=== PATIENT | female | born 1960 | race African-American/Black ===

== ENCOUNTER 2017-03-13 08:27 | Emergency (ER) | payer BC ==
[~2017-03-13] VITALS: Ht 157.5 cm; Wt 59.0 kg
[~2017-03-13 08:27] MED LIST: ACET500T68 PO; CYCL10TA2 PO; DOCU-27 PO; IBUP-1027 PO; MELO-150 PO; OXYC1TAB7 PO; PANT40TA3 PO
[2017-03-13 08:37] VITALS: BP 134/85
[2017-03-13] MEDS ORDERED: ONDANSETRON ODT 4 MG TAB.RAPDIS. PO ONE (08:45)
[2017-03-13] MEDS ORDERED: OXYCODONE/APAP 5/325 TABLET. PO ONE (08:45)
--- NOTE | 2017-03-13 08:47 | PHYS DOC ---
Past Medical History Past Medical History: Hyperthyroid, Other Additional Past Medical Histor: sciatica Past Surgical History: Other Additional Past Surgical Histo: d & c, R breast biopsy, right knee fracture repair with hardware Alcohol Use: None Drug Use: None Adult General Chief Complaint Chief Complaint: BACK PAIN - NO INJURY HPI HPI Patient is a 56 year old female who presents emergency room today with complaint of atraumatic low back pain that radiates down her right leg for approximately one week. Patient denies any inciting injury such as slips, falls , rotation or lifting objects. 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 This surgery was performed by Dr. Caruso, neurosurgeon at this facility. Other than radiation down right leg, patient denies saddle anesthesia or incontinence of urine or bowel. She denies urinary tract symptoms such as dysuria, hematuria or flank pain. Review of Systems Review of Systems Constitutional: Denies fever or chills [] Eyes: Denies change in visual acuity, redness, or eye pain [] HENT: Denies nasal congestion or sore throat [] Respiratory: Denies cough or shortness of breath [] Cardiovascular: No additional information not addressed in HPI [] GI: Denies abdominal pain, nausea, vomiting, bloody stools or diarrhea [] : Denies dysuria or hematuria [] Musculoskeletal: Denies back pain or joint pain [] Integument: Denies rash or skin lesions [] Neurologic: Denies headache, focal weakness or sensory changes [] Endocrine: Denies polyuria or polydipsia [] Current Medications Current Medications Current Medications Medications (Trade) Dose Ordered Sig/Yoav Start Time Stop Time Status Last Admin Dose Admin Ondansetron HCl (Zofran Odt) 4 mg 1X ONCE 03/13/17 08:45 03/13/17 08:46 DC 03/13/17 08:50 4 MG Oxycodone/ Acetaminophen (Percocet 5/325) 2 tab 1X ONCE 03/13/17 08:45 03/13/17 08:46 DC 03/13/17 08:50 2 TAB Allergies Allergies Allergies Coded Allergies Type Severity Reaction Last Updated Verified hydrocodone Allergy Mild NAUSEA 09/15/16 Yes Physical Exam Physical Exam Constitutional: Well developed, well nourished, no acute distress, non-toxic appearance. [] HENT: Normocephalic, atraumatic, bilateral external ears normal, oropharynx moist, no oral exudates, nose normal. [] Eyes: PERRLA, EOMI, conjunctiva normal, no discharge. [] Neck: Normal range of motion, no tenderness, supple, no stridor. [] Cardiovascular:Heart rate regular rhythm, no murmur [] Lungs & Thorax: Bilateral breath sounds clear to auscultation [] Abdomen: Bowel sounds normal, soft, no tenderness, no masses, no pulsatile masses. [] Skin: Warm, dry, no erythema, no rash. [] Back: Back is normal in appearance with exception of a well-healed, vertical surgical scar along the lumbar spine. There is no erythema or warmth to patient' s skin. There are no overlying skin lesions suggestive of shingles. There is tenderness to palpation the right paraspinous soft tissues at the level of L2- 5. There is no palpable defect, deformity or spasm. There is mild tenderness in the midline region as well without palpable abnormality. Extremities: No tenderness, no cyanosis, no clubbing, ROM intact, no edema. There are no dystrophic changes to either lower extremity. Strength is equal and symmetric bilaterally. Neurologic: Alert and oriented X 3, normal motor function, normal sensory function, no focal deficits noted. [] Psychologic: Affect normal, judgement normal, mood normal. [] Current Patient Data Vital Signs Vital Signs Date Time Temp Pulse Resp B/P Pulse Ox O2 Delivery O2 Flow Rate FiO2 03/13/17 08:37 97.7 85 18 100 Room Air 97.7 EKG EKG [] Radiology/Procedures Radiology/Procedures [facility] [address] [place] [address] IMAGING REPORT Signed PATIENT: SOILA PITTS ACCOUNT: [id number] : 1960 LOCATION: ER AGE: 56 SEX: F EXAM STATUS: REG ER ORD. PHYSICIAN: SHELL CORONADO REASON: low back pain for 1 week-hx of melanotic schwannoma PROCEDURE: CT LUMBAR SPINE WO CONTRAST Indication low back pain for one week. Axial images were obtained and reformatted in the coronal and sagittal planes. Disc cuts were also obtained. Note is made of the previous examination 07/30/2015 demonstrating a mass in the right neural foramen at L3-4. Note is made that the patient has had surgery and this soft tissue mass has been removed. A significant soft tissue finding is not seen. Occasional calcifications are noted associated with the visualized liver. Vertebral height is well maintained. There are some facet degenerative changes. Alignment and disc spaces appear normal. An acute finding is not seen. The thoracolumbar junction appears unremarkable. L1-2 shows no significant foraminal encroachment or canal narrowing. L2-3 is also unremarkable. There is slight soft tissue irregularity on the right at L3-4 which is likely postsurgical. Right laminectomy defect additionally noted. Recurrent soft tissue mass or canal narrowing is not seen. There is very slight disc space bulging at L3-4. L4-5 shows no significant canal or neural foraminal encroachment. L5-S1 is unremarkable showing no significant canal narrowing or neural foraminal encroachment. If further evaluation of the lumbar spine as clinically warranted an MRI examination may be useful. IMPRESSION: No acute or significant finding seen CT of the lumbar spine PQRS Compliance Statement: One or more of the following individualized dose reduction techniques were utilized for this examination: 1. Automated exposure control 2. Adjustment of the mA and/or kV according to patient size 3. Use of iterative reconstruction technique DICTATED and SIGNED BY: LEVON CARR MD DATE: 03/13/17 0935 CC: MEETA JHAVERI APRN; SHELL CORONADO ~ Course & Med Decision Making Course & Med Decision Making Patient received Percocet by mouth for her pain. She reports that her pain is improving after taking the medication. We discussed her CT scan findings which are reassuring at this point. We also discussed follow-up with Dr. Caruso for reevaluation. Dragon Disclaimer Dragon Disclaimer This electronic medical record was generated, in whole or in part, using a voice recognition dictation system. Departure Departure Impression: Primary Impression: Lumbosacral radiculopathy Disposition: HOME, SELF-CARE Condition: IMPROVED Referrals: MEETA JHAVERI APRN (PCP) SHARON CARUSO MD Patient Instructions: Lumbosacral Radiculopathy Additional Instructions: 1. The CT scan of your back today shows no recurrence of the soft tissue mass or other abnormalities with the exception of the typical findings after the surgery had. 2. Take the medication as prescribed. 3. Review the discharge instructions provided for self-care and reasons to return to the emergency department. 4. Call Dr. Caruso's office this afternoon or tomorrow to schedule follow-up appointment. Scripts Prednisone 50 Mg Tablet1 Tab PO DAILY #5 TAB Prov:SHELL CORONADO 03/13/17 Oxycodone/Apap 5-325 (Percocet 5-325 Mg Tablet)1 Each Tablet1-2 Tab PO every 6 hours PAIN #20 TAB Prov:SHELL CORONADO 03/13/17 SHELL CORONADO March 13, 2017 08:47
--- NOTE | 2017-03-13 09:48 | RAD ---
Indication low back pain for one week. Axial images were obtained and reformatted in the coronal and sagittal planes. Disc cuts were also obtained. Note is made of the previous examination 07/30/2015 demonstrating a mass in the right neural foramen at L3-4. Note is made that the patient has had surgery and this soft tissue mass has been removed. A significant soft tissue finding is not seen. Occasional calcifications are noted associated with the visualized liver. Vertebral height is well maintained. There are some facet degenerative changes. Alignment and disc spaces appear normal. An acute finding is not seen. The thoracolumbar junction appears unremarkable. L1-2 shows no significant foraminal encroachment or canal narrowing. L2-3 is also unremarkable. There is slight soft tissue irregularity on the right at L3-4 which is likely postsurgical. Right laminectomy defect additionally noted. Recurrent soft tissue mass or canal narrowing is not seen. There is very slight disc space bulging at L3-4. L4-5 shows no significant canal or neural foraminal encroachment. L5-S1 is unremarkable showing no significant canal narrowing or neural foraminal encroachment. If further evaluation of the lumbar spine as clinically warranted an MRI examination may be useful. IMPRESSION: No acute or significant finding seen CT of the lumbar spine PQRS Compliance Statement: One or more of the following individualized dose reduction techniques were utilized for this examination: 1. Automated exposure control 2. Adjustment of the mA and/or kV according to patient size 3. Use of iterative reconstruction technique
[2017-03-13] MEDS ORDERED: OXYC-323 PO (10:08)
[2017-03-13] MEDS ORDERED: PRED50TA PO (10:08)
== END 2017-03-13 10:27 | disposition home or self-care (01) ==
LOC: ER 08:27
DX: M54.17 Radiculopathy, lumbosacral region (principal); E05.90 Thyrotoxicosis, unspecified without thyrotoxic crisis or storm; Z88.5 Allergy status to narcotic agent
CPT/HCPCS: 72131; 99284; Q0162

== ENCOUNTER 2017-04-22 13:37 | Emergency (ER) | payer BC ==
[~2017-04-22] VITALS: Ht 157.5 cm; Wt 59.0 kg
[~2017-04-22 13:37] MED LIST changes: +DOCU-109 PO; -DOCU-27 PO; -MELO-150 PO; +MELO15TA23 PO; +OXYC-323 PO; +PRED50TA PO
[2017-04-22] MEDS ORDERED: SULF1TAB24 PO (14:34)
--- NOTE | 2017-04-22 14:35 | PHYS DOC ---
Past Medical History Past Medical History: Hyperthyroid, Other Additional Past Medical Histor: sciatica Past Surgical History: Other Additional Past Surgical Histo: d & c, R breast biopsy, right knee fracture repair with hardware Alcohol Use: None Drug Use: None Adult General Chief Complaint Chief Complaint: BACK PAIN OR INJURY [facility] HPI Patient is a 56 year old female presents to the emergency department stating 4: 00 this when she developed back pain and discomfort. She states that she's had surgery and whether surgical site is's with the pain has occurred. Patient does have a reddened area to the right of the scar that appears to be swollen tender as if something had bitten her. Patient states her last tetanus immunization was 3 years ago. Denies Chills or any nausea vomiting. Review of Systems Review of Systems Constitutional: Denies fever or chills [] Eyes: Denies change in visual acuity, redness, or eye pain [] HENT: Denies nasal congestion or sore throat [] Respiratory: Denies cough or shortness of breath [] Cardiovascular: No additional information not addressed in HPI [] GI: Denies abdominal pain, nausea, vomiting, bloody stools or diarrhea [] : Denies dysuria or hematuria [] Musculoskeletal: Denies back pain or joint pain [] Integument: Denies rash or skin lesions. Red tender area noted to the right of patients back scar Neurologic: Denies headache, focal weakness or sensory changes [] Endocrine: Denies polyuria or polydipsia [] Allergies Allergies Allergies Coded Allergies Type Severity Reaction Last Updated Verified hydrocodone Allergy Mild NAUSEA 09/15/16 Yes Physical Exam Physical Exam Constitutional: Well developed, well nourished, no acute distress, non-toxic appearance. [] HENT: Normocephalic, atraumatic, bilateral external ears normal, oropharynx moist, no oral exudates, nose normal. [] Eyes: PERRLA, EOMI, conjunctiva normal, no discharge. [] Neck: Normal range of motion, no tenderness, supple, no stridor. [] Cardiovascular:Heart rate regular rhythm, no murmur [] Lungs & Thorax: Bilateral breath sounds clear to auscultation [] Skin: Warm, dry, no erythema, no rash. Patient has red area noted to the right of incisional scar. Area is tender, red and swollen with no drainage or discharge noted. Back: No tenderness Extremities: No tenderness, no cyanosis, no clubbing, ROM intact, no edema. Patient was noted to ambulate with a good steady gait. Neurologic: Alert and oriented X 3, normal motor function, normal sensory function, no focal deficits noted. [] Psychologic: Affect normal, judgement normal, mood normal. [] Current Patient Data Vital Signs Vital Signs Date Time Temp Pulse Resp B/P (MAP) Pulse Ox O2 Delivery O2 Flow Rate FiO2 04/22/17 14:03 98.2 60 14 99 Room Air 98.2 EKG EKG [] Radiology/Procedures Radiology/Procedures [] Course & Med Decision Making Course & Med Decision Making Pertinent Labs and Imaging studies reviewed. (See chart for details) Patient was recommended to use Tylenol or ibuprofen for pain and discomfort. Warm moist packs to the back area. Patient will be placed on Bactrim. Recommended patient to follow up primary care physician in the next 5-7 days. Since symptoms to return back to emergency department as been provided. Patient agrees with discharge instructions treatment regimens and follow-up recommendations. [] Dragon Disclaimer Dragdana Disclaimer This electronic medical record was generated, in whole or in part, using a voice recognition dictation system. Departure Departure Impression: Primary Impression: Cellulitis of back Disposition: HOME, SELF-CARE Condition: STABLE Referrals: MEETA JHAVERI APRN (PCP) Patient Instructions: Cellulitis, [id number] Additional Instructions: Activity as tolerated Medication as prescribed Tylenol or Ibuprofen for fever, chills, or pain Warm moist packs to the area five times a day for 20 minutes at a time Followup with primary care provider in 3-5 days Return to emergency department as needed for signs and symptoms that become worse. Scripts Sulfamethoxazole/Trimethoprim (BACTRIM DS TABLET) 1 Each Tablet 1 TAB PO BID, #20 TAB Prov: KO DALY APRN 04/22/17 KO DALY APRN Apr 22, 2017 14:35
[2017-04-22] MEDS ORDERED: IBUPROFEN 600 MG TABLET. PO ONE (14:45)
== END 2017-04-22 14:40 | disposition home or self-care (01) ==
LOC: ER 13:37
DX: L03.312 Cellulitis of back [any part except buttock and flank] (principal); E05.90 Thyrotoxicosis, unspecified without thyrotoxic crisis or storm; Z88.6 Allergy status to analgesic agent; Z98.890 Other specified postprocedural states
CPT/HCPCS: 99283

== ENCOUNTER 2018-02-05 13:45 | Emergency (ER) | payer BC ==
[2018-02-05] MEDS: HYDROcodone/APAP 5/325MG 1 TAB TABLET PO (14:30)
[2018-02-05] MEDS: IBUPROFEN 800 MG TABLET. PO (14:30)
== END 2018-02-05 14:50 | disposition home or self-care (01) ==
LOC: ER 13:45
DX: M54.42 Lumbago with sciatica, left side (principal); E05.90 Thyrotoxicosis, unspecified without thyrotoxic crisis or storm; Z88.5 Allergy status to narcotic agent
CPT/HCPCS: 99283

== ENCOUNTER 2018-03-06 15:30 | Inpatient (IN) | payer BC ==
[2018-03-06 17:13] LABS: ADD MAN DIFF? NO
[2018-03-06 17:15] LABS: BASO # 0.1 x10^3/uL (0.0-0.2); BASO % 1 % (0-3); EOS # 0.1 x10^3/uL (0.0-0.7); EOS % 1 % (0-3); HEMOGLOBIN 15.2 g/dL (12.0-15.5); LYMPH # 3.3 x10^3/uL (1.0-4.8); LYMPH % 33 % (24-48); MEAN CORPUSCULAR HEMOGLOBIN 29 pg (25-35); MEAN CORPUSCULAR HGB CONC 34 g/dL (31-37); MEAN CORPUSCULAR VOLUME 86 fL (79-100); MONO # 0.7 x10^3/uL (0.0-1.1); MONO % 7 % (0-9); NEUT # 5.8 x10^3uL (1.8-7.7); NEUT % 58 % (31-73); PLATELET COUNT 295 x10^3/uL (140-400); RED BLOOD COUNT 5.22 x10^6/uL (3.50-5.40); RED CELL DISTRIBUTION WIDTH 13.4 % (11.5-14.5)
[2018-03-06] MEDS: ONDANSETRON PF 4 MG/2 ML VIAL. IV (17:17)
[2018-03-06] MEDS: FAMOTIDINE 20 MG/2 ML VIAL IVP (17:17)
[2018-03-06] MEDS: fentaNYL PF VIAL 100 MCG/2 ML VIAL IV ×3 (17:17→21:29)
[2018-03-06] MEDS: IV NORMAL SALINE 1000ML BAG 1,000 ML IV ×2 (17:18→21:30)
[2018-03-06 17:27] LABS: ANION GAP 12 (6-14); BLOOD UREA NITROGEN 11 mg/dL (7-20); BUN/CREATININE RATIO 11 (6-20); CALCIUM 9.9 mg/dL (8.5-10.1); CARBON DIOXIDE 27 mmol/L (21-32); CHLORIDE 101 mmol/L (98-107); GFR 69.1; GLUCOSE 102 mg/dL (70-99); POTASSIUM 3.7 mmol/L (3.5-5.1); SODIUM 140 mmol/L (136-145)
[2018-03-06 17:33] LABS: ALBUMIN 3.7 g/dL (3.4-5.0); ALBUMIN/GLOBULIN RATIO 0.8 (1.0-1.7); ALK PHOS 94 U/L (46-116); ALT (SGPT) 18 U/L (14-59); AST (SGOT) 18 U/L (15-37); LIPASE 72 U/L (73-393); TOTAL BILIRUBIN 0.5 mg/dL (0.2-1.0); TOTAL PROTEIN 8.3 g/dL (6.4-8.2)
[2018-03-06 17:40] LABS: TROPONINI < 0.017 ng/mL (0.000-0.055)
[2018-03-06 17:43] LABS: CKMB MASS < 0.5 ng/mL (0.0-3.6); CREATINE KINASE 91 U/L (26-192)
[2018-03-06 17:54] LABS: BILIRUBIN,URINE NEGATIVE (NEG); CLARITY,URINE CLEAR; COLOR,URINE YELLOW; GLUCOSE,URINE NEGATIVE (NEG); NITRITE,URINE NEGATIVE (NEG); PROTEIN,URINE NEGATIVE (NEG-TRACE); UROBILINOGEN,URINE 0.2 mg/dL (0.2 mg/dL)
[2018-03-06 18:00] LABS: BARBITURATES NEG (NEG); BENZODIAZEPINES NEG (NEG); CANNABINOIDS POS (NEG); COCAINE NEG (NEG); METHADONE NEG (NEG); OPIATES NEG (NEG); PHENCYCLIDINE NEG (NEG)
[2018-03-06 18:01] LABS: AMPHETAMINE/METHAMPHETAMINE NEG (NEG); ETHANOL, URINE NEG (NEG)
[2018-03-06 18:02] LABS: BACTERIA,URINE 0 /HPF (0-FEW); SQUAMOUS EPITHELIAL CELL,UR OCC /LPF; WBC,URINE 0 /HPF (0-4)
[2018-03-06] MEDS ORDERED: ACETAMINOPHEN 325 MG TABLET. PO (19:00)
[2018-03-06] MEDS ORDERED: ONDANSETRON PF 4 MG/2 ML VIAL. IV (19:00)
[2018-03-06] MEDS ORDERED: ACETAMINOPHEN 500 MG TABLET PO (22:00)
[2018-03-06] MEDS: DOCUSATE SODIUM 100 MG CAPSULE. PO (22:26)
[2018-03-06] MEDS: oxyCODONE/APAP 5/325 1 TAB TABLET PO (22:28)
[2018-03-07] MEDS: IV NORMAL SALINE 1000ML BAG 1,000 ML IV ×2 (02:57→05:48)
[2018-03-07] MEDS: fentaNYL PF VIAL 100 MCG/2 ML VIAL IV ×4 (02:59→15:56)
[2018-03-07 04:37] LABS: ADD MAN DIFF? NO
[2018-03-07 04:44] LABS: BASO # 0.1 x10^3/uL (0.0-0.2); BASO % 1 % (0-3); EOS # 0.3 x10^3/uL (0.0-0.7); EOS % 3 % (0-3); HEMATOCRIT 39.5 % (36.0-47.0); HEMOGLOBIN 12.9 g/dL (12.0-15.5); LYMPH # 3.5 x10^3/uL (1.0-4.8); LYMPH % 45 % (24-48); MEAN CORPUSCULAR HEMOGLOBIN 29 pg (25-35); MEAN CORPUSCULAR HGB CONC 33 g/dL (31-37); MEAN CORPUSCULAR VOLUME 87 fL (79-100); MONO # 0.5 x10^3/uL (0.0-1.1); MONO % 7 % (0-9); NEUT # 3.4 x10^3uL (1.8-7.7); NEUT % 44 % (31-73); PLATELET COUNT 241 x10^3/uL (140-400); RED BLOOD COUNT 4.53 x10^6/uL (3.50-5.40); RED CELL DISTRIBUTION WIDTH 13.8 % (11.5-14.5); WHITE BLOOD COUNT 7.8 x10^3/uL (4.0-11.0)
[2018-03-07 04:57] LABS: ANION GAP 7 (6-14); BLOOD UREA NITROGEN 12 mg/dL (7-20); CALCIUM 8.5 mg/dL (8.5-10.1); CARBON DIOXIDE 28 mmol/L (21-32); CHLORIDE 108 mmol/L (98-107); GFR 69.1; GLUCOSE 94 mg/dL (70-99); SODIUM 143 mmol/L (136-145)
[2018-03-07] MEDS ORDERED: PANTOPRAZOLE 40 MG TABLET.DR. PO (07:30)
[2018-03-07] MEDS: DOCUSATE SODIUM 100 MG CAPSULE. PO ×2 (08:07→20:31)
[2018-03-07] MEDS: PANTOPRAZOLE 40 MG TABLET.DR. PO ×3 (08:08→20:31)
[2018-03-07] MEDS ORDERED: ACETAMINOPHEN 325 MG TABLET. PO (09:00)
[2018-03-07] MEDS ORDERED: predniSONE 20 MG TABLET PO (09:00)
[2018-03-07] MEDS ORDERED: DEXAMETHASONE SOD PHOS 4 MG/ML VIAL IV (09:00)
[2018-03-07] MEDS ORDERED: SMZ/TMP 800/160MG TABLET. PO (09:00)
[2018-03-07] MEDS ORDERED: hydrALAZINE 20 MG/ML VIAL. IVP (09:00)
[2018-03-07] MEDS ORDERED: ONDANSETRON PF 4 MG/2 ML VIAL. IV (09:00)
[2018-03-07] MEDS ORDERED: DOCUSATE SODIUM 100 MG CAPSULE. PO (09:00)
[2018-03-07] MEDS ORDERED: NON FORMULARY ITEM (Prednisone 1 TAB) PO (09:00)
[2018-03-07] MEDS: IV RINGERS,LACTATED 1000ML 1,000 ML IV (13:40)
[2018-03-07] MEDS ORDERED: PROPOFOL 20 ML IV (14:07)
[2018-03-07] MEDS ORDERED: LIDOCAINE 2% PF Vial for OR 5 ML VIAL. (14:07)
[2018-03-07] MEDS: ENOXAPARIN 40 MG/0.4 ML SYRINGE. SQ (15:50)
[2018-03-07] MEDS: oxyCODONE/APAP 5/325 1 TAB TABLET PO (17:59)
[2018-03-08] MEDS: oxyCODONE/APAP 5/325 1 TAB TABLET PO (00:42)
[2018-03-08 04:51] LABS: ADD MAN DIFF? NO
[2018-03-08 04:56] LABS: BASO # 0.1 x10^3/uL (0.0-0.2); BASO % 1 % (0-3); EOS # 0.4 x10^3/uL (0.0-0.7); EOS % 6 % (0-3); HEMATOCRIT 37.1 % (36.0-47.0); HEMOGLOBIN 12.3 g/dL (12.0-15.5); LYMPH # 3.4 x10^3/uL (1.0-4.8); LYMPH % 51 % (24-48); MEAN CORPUSCULAR HEMOGLOBIN 29 pg (25-35); MEAN CORPUSCULAR HGB CONC 33 g/dL (31-37); MEAN CORPUSCULAR VOLUME 86 fL (79-100); MONO # 0.5 x10^3/uL (0.0-1.1); MONO % 7 % (0-9); NEUT # 2.4 x10^3uL (1.8-7.7); NEUT % 36 % (31-73); PLATELET COUNT 219 x10^3/uL (140-400); RED BLOOD COUNT 4.29 x10^6/uL (3.50-5.40); RED CELL DISTRIBUTION WIDTH 13.3 % (11.5-14.5); WHITE BLOOD COUNT 6.7 x10^3/uL (4.0-11.0)
[2018-03-08 05:13] LABS: ANION GAP 6 (6-14); BLOOD UREA NITROGEN 13 mg/dL (7-20); CALCIUM 8.5 mg/dL (8.5-10.1); CARBON DIOXIDE 27 mmol/L (21-32); CHLORIDE 108 mmol/L (98-107); GFR 69.1; GLUCOSE 86 mg/dL (70-99); POTASSIUM 4.1 mmol/L (3.5-5.1); SODIUM 141 mmol/L (136-145)
[2018-03-08] MEDS: fentaNYL PF VIAL 100 MCG/2 ML VIAL IV (08:47)
[2018-03-08] MEDS: DOCUSATE SODIUM 100 MG CAPSULE. PO (09:00)
[2018-03-08] MEDS: SINCALIDE 1.31 MCG in IV NORMAL SALINE 50ML 30 ML IV (11:25)
[2018-03-08] MEDS: PANTOPRAZOLE 40 MG TABLET.DR. PO (12:52)
== END 2018-03-08 17:07 | disposition home or self-care (01) | DRG 392 ==
LOC: ER 15:30 → 5 SOUTH 18:42
PROC: 0DJ08ZZ Inspection of Upper Intestinal Tract, Via Natural or Artificial Opening Endoscopic (ICD-10-PCS; principal; 2018-03-07 14:19)
DX: K29.70 Gastritis, unspecified, without bleeding (principal); K31.84 Gastroparesis; E05.90 Thyrotoxicosis, unspecified without thyrotoxic crisis or storm; F12.10 Cannabis abuse, uncomplicated; F17.210 Nicotine dependence, cigarettes, uncomplicated; K21.9 Gastro-esophageal reflux disease without esophagitis; K29.50 Unspecified chronic gastritis without bleeding; K57.10 Diverticulosis of small intestine without perforation or abscess without bleeding; K59.00 Constipation, unspecified; M54.30 Sciatica, unspecified side; Z81.8 Family history of other mental and behavioral disorders; Z82.0 Family history of epilepsy and other diseases of the nervous system; Z82.49 Family history of ischemic heart disease and other diseases of the circulatory system; Z82.5 Family history of asthma and other chronic lower respiratory diseases; Z83.3 Family history of diabetes mellitus; Z88.5 Allergy status to narcotic agent
CPT/HCPCS: 36415; 72100; 74022; 76700; 78226; 80048; 80053; 80307; 81001; 82553; 83690; 84443; 84484; 85025; 93005; 96361; 96374; 96375; 99285; 99285-25; 99406; A9537; J1650; J2405; J2704; J2805; J3010; J7030; J7120; S0028

== ENCOUNTER 2018-04-28 11:27 | Emergency (ER) | payer BC ==
[2018-04-28] MEDS: HYDROcodone/APAP 5/325MG 1 TAB TABLET PO (12:24)
[2018-04-28] MEDS: IBUPROFEN 800 MG TABLET. PO (12:26)
== END 2018-04-28 14:14 | disposition home or self-care (01) ==
LOC: ER 14:14
DX: S82.61XA Displaced fracture of lateral malleolus of right fibula, initial encounter for closed fracture (principal); K21.9 Gastro-esophageal reflux disease without esophagitis; Z79.891 Long term (current) use of opiate analgesic; Z79.1 Long term (current) use of non-steroidal anti-inflammatories (NSAID); Z88.5 Allergy status to narcotic agent; W01.0XXA Fall on same level from slipping, tripping and stumbling without subsequent striking against object, initial encounter; Y93.89 Activity, other specified; Y92.89 Other specified places as the place of occurrence of the external cause; Y99.8 Other external cause status
CPT/HCPCS: 29515; 73610; 99284-25

== ENCOUNTER 2019-05-21 14:17 | Emergency (ER) | payer BC ==
[~2019-05-21] VITALS: Ht 157.5 cm; Wt 63.5 kg
[~2019-05-21 14:17] MED LIST changes: +IBUP-1060 PO; -OXYC-323 PO; +OXYC1TAB15 PO; +OXYC5TAB4 PO; -PANT40TA3 PO; +PANT40TA77 PO; +PRED20TA PO; +SULF1TAB24 PO
[2019-05-21] MEDS ORDERED: ONDANSETRON PF 4 MG/2 ML VIAL. IV ONE (15:15)
[2019-05-21] MEDS ORDERED: IV NORMAL SALINE 1000ML BAG 1,000 ML IV ONE (15:15)
[2019-05-21] MEDS ORDERED: fentaNYL PF VIAL 100 MCG/2 ML VIAL IV ONE (15:15)
[2019-05-21 15:29] LABS: BILIRUBIN,URINE NEGATIVE (NEG); CLARITY,URINE CLEAR; COLOR,URINE YELLOW; NITRITE,URINE NEGATIVE (NEG); PROTEIN,URINE NEGATIVE (NEG-TRACE)
[2019-05-21 15:38] LABS: BACTERIA,URINE 0 /HPF (0-FEW); SQUAMOUS EPITHELIAL CELL,UR FEW /LPF; WBC,URINE 0 /HPF (0-4)
[2019-05-21 15:56] LABS: BASO # 0.1 x10^3/uL (0.0-0.2); BASO % 1 % (0-3); EOS # 0.6 x10^3/uL (0.0-0.7); EOS % 8 % (0-3); HEMATOCRIT 40.3 % (36.0-47.0); HEMOGLOBIN 13.5 g/dL (12.0-15.5); LYMPH # 2.9 x10^3/uL (1.0-4.8); LYMPH % 36 % (24-48); MEAN CORPUSCULAR HEMOGLOBIN 28 pg (25-35); MEAN CORPUSCULAR HGB CONC 34 g/dL (31-37); MEAN CORPUSCULAR VOLUME 85 fL (79-100); MONO # 0.5 x10^3/uL (0.0-1.1); MONO % 7 % (0-9); NEUT # 3.9 x10^3/uL (1.8-7.7); NEUT % 49 % (31-73); PLATELET COUNT 276 x10^3/uL (140-400); RED BLOOD COUNT 4.78 x10^6/uL (3.50-5.40); WHITE BLOOD COUNT 8.1 x10^3/uL (4.0-11.0)
[2019-05-21 16:05] LABS: CALCIUM 9.3 mg/dL (8.5-10.1); GFR 68.9; POTASSIUM 3.6 mmol/L (3.5-5.1)
[2019-05-21 16:08] LABS: PROTHROMBIN TIME PATIENT 12.5 SEC (11.7-14.0)
[2019-05-21 16:11] LABS: ALBUMIN 3.1 g/dL (3.4-5.0); ALBUMIN/GLOBULIN RATIO 0.7 (1.0-1.7); MAGNESIUM 2.2 mg/dL (1.8-2.4); TOTAL BILIRUBIN 0.2 mg/dL (0.2-1.0); TOTAL PROTEIN 7.5 g/dL (6.4-8.2)
[2019-05-21] MEDS ORDERED: IOHEXOL 350 MG/ML 100 ML VIAL. IV ONE (16:15)
--- NOTE | 2019-05-21 16:55 | RAD ---
CT ANGIO CHEST ABD PELVIS Indication: Abdominal pain through the back. Possible aneurysm. Exposure: One or more of the following individualized dose reduction techniques were utilized for this examination: 1. Automated exposure control 2. Adjustment of the mA and/or kV according to patient size 3. Use of iterative reconstruction technique. Technique: Standard imaging obtained after intravenous contrast administration. MIP reconstructions were obtained. Comparison: None are available. Contrast: Intravenous contrast was given. No oral contrast per request. Findings: Mild irregularity of the ascending aorta is thought to be due to pulsatility artifact. Mild aortic calcification. No definite aortic dissection. No evidence of aortic aneurysm. The proximal great vessel origins are patent. Renal arteries appear grossly patent. Superior mesenteric artery and celiac trunk are patent. The inferior mesenteric artery is patent. No evidence of large central pulmonary embolism. Evaluation of nonarterial structures and viscera is limited due to technique. Lungs appear grossly clear. No evidence of pleural effusion. No significant thoracic lymph node enlargement. No evidence of thyroid mass. Multiple dense calcifications are identified within the liver, could be granulomatous. Spleen is not enlarged. Pancreas grossly unremarkable. No evidence of adrenal mass. Kidneys enhance symmetrically without hydronephrosis. No calcified gallstone. No significant lymph node enlargement. Mild urinary bladder wall thickening likely due to incomplete distention. No definite pneumoperitoneum or ascites. No evidence of small bowel obstruction. Mild retained stool in the colon. No evidence of acute colitis. The appendix appears normal. Vertebral body height and alignment are maintained. No aggressive bone destruction. IMPRESSION: 1. Atherosclerotic aortic disease without evidence of aortic aneurysm. 2. No definite aortic dissection. Heterogeneity of the wall of the ascending aorta is likely due to pulsatility artifact. 3. Dense hepatic calcifications, may be granulomatous in nature. Electronically signed by: Kvng Carbajal MD (05/21/2019 4:52 PM) [id number]
[2019-05-21] MEDS ORDERED: ORPH100T PO (17:13)
--- NOTE | 2019-05-21 17:14 | PHYS DOC ---
Past Medical History Past Medical History: GERD, Hyperthyroid, Sciatica Additional Past Medical Histor: sciatica Past Surgical History: Other Additional Past Surgical Histo: d&c,R breast biopsy,r knee fracture repair w/hardware Additional Information: 0.25 PPD Alcohol Use: None Drug Use: None Adult General Chief Complaint Chief Complaint: BACK PAIN OR INJURY [facility] HPI Patient is a 58 year old -[place] female, accompanied by her family, who presents to the emergency Department today with complaints of thoracic back pain for the last few days that feels like pulling and upper abdominal/epigastric pain that is described as pressure. Patient reports nausea, she denies any vomiting, diarrhea, dysuria, increased urinary frequency, hematuria, fever, shortness of breath, chest pain, palpitations, or syncope. She denies any cardiac history. Patient currently rates the discomfort a 9 out of 10 on the pain scale, there are no alleviating factors. She denies any recent injury or heavy lifting. Review of Systems Review of Systems Constitutional: Denies fever or chills [] Eyes: Denies change in visual acuity, redness, or eye pain [] HENT: Denies nasal congestion or sore throat [] Respiratory: Denies cough or shortness of breath [] Cardiovascular: No additional information not addressed in HPI [] GI: see history of present illness : Denies dysuria or hematuria [] Musculoskeletal: see history of present illness Integument: Denies rash or skin lesions [] Neurologic: Denies headache, focal weakness or sensory changes [] Complete systems were reviewed and found to be within normal limits, except as documented in this note. Current Medications Current Medications Current Medications Medications (Trade) Dose Ordered Sig/Yoav Start Time Stop Time Status Last Admin Dose Admin Fentanyl Citrate (Fentanyl 2ml Vial) 50 mcg 1X ONCE 05/21/19 15:15 05/21/19 15:16 DC 05/21/19 15:57 50 MCG Iohexol (Omnipaque 350 Mg/ml) 100 ml 1X ONCE 05/21/19 16:15 05/21/19 16:17 DC 05/21/19 16:24 100 ML Ondansetron HCl (Zofran) 4 mg 1X ONCE 05/21/19 15:15 05/21/19 15:16 DC 05/21/19 15:55 4 MG Orphenadrine Citrate (Norflex) 60 mg 1X ONCE 05/21/19 17:15 05/21/19 17:20 DC 05/21/19 17:17 60 MG Sodium Chloride 1,000 ml @ 1,000 mls/hr 1X ONCE 05/21/19 15:15 05/21/19 16:14 DC 05/21/19 15:52 1,000 MLS/HR Allergies Allergies Allergies Coded Allergies Type Severity Reaction Last Updated Verified hydrocodone Allergy Mild NAUSEA 03/07/18 Yes Physical Exam Physical Exam Constitutional: Well developed, well nourished, no acute distress, non-toxic appearance. [] HENT: Normocephalic, atraumatic, bilateral external ears normal, oropharynx moist, no oral exudates, nose normal. [] Eyes: conjunctiva normal, no discharge. [] Neck: Normal range of motion, no stridor. [] Cardiovascular:Heart rate regular rhythm, no murmur [] Lungs & Thorax: Bilateral breath sounds clear to auscultation [] Abdomen: Bowel sounds normal, soft, no tenderness, no rebound, no guarding no masses, no pulsatile masses. [] Skin: Warm, dry, no erythema, no rash. [] Back: No paraspinal tenderness, no CVA tenderness; thoracic bony tenderness no deformity, no step-off, no crepitus [] Extremities: No cyanosis, no clubbing, ROM intact, no edema. [] Neurologic: Alert and oriented X 3, normal motor function, normal sensory function, no focal deficits noted. [] Psychologic: Affect normal, judgement normal, mood normal. [] Current Patient Data Vital Signs Vital Signs Date Time Temp Pulse Resp B/P (MAP) Pulse Ox O2 Delivery O2 Flow Rate FiO2 05/21/19 17:20 50 18 141/68 (92) 99 Room Air 05/21/19 14:21 98.0 98.0 Lab Values Laboratory Tests Test 05/21/19 15:05 05/21/19 15:42 Urine Collection Type Void Urine Color Yellow Urine Clarity Clear Urine pH 6.0 Urine Specific [place] 1.020 Urine Protein Negative mg/dL (NEG-TRACE) Urine Glucose (UA) Negative mg/dL (NEG) Urine Ketones (Stick) Negative mg/dL (NEG) Urine Blood Trace (NEG) Urine Nitrite Negative (NEG) Urine Bilirubin Negative (NEG) Urine Urobilinogen Dipstick 1.0 mg/dL (0.2 mg/dL) Urine Leukocyte Esterase Negative (NEG) Urine RBC 1-2 /HPF (0-2) Urine WBC 0 /HPF (0-4) Urine Squamous Epithelial Cells Few /LPF Urine Bacteria 0 /HPF (0-FEW) Urine Mucus Marked /LPF White Blood Count 8.1 x10^3/uL (4.0-11.0) Red Blood Count 4.78 x10^6/uL (3.50-5.40) Hemoglobin 13.5 g/dL (12.0-15.5) Hematocrit 40.3 % (36.0-47.0) Mean Corpuscular Volume 85 fL (79-100) Mean Corpuscular Hemoglobin 28 pg (25-35) Mean Corpuscular Hemoglobin Concent 34 g/dL (31-37) Red Cell Distribution Width 14.0 % (11.5-14.5) Platelet Count 276 x10^3/uL (140-400) Neutrophils (%) (Auto) 49 % (31-73) Lymphocytes (%) (Auto) 36 % (24-48) Monocytes (%) (Auto) 7 % (0-9) Eosinophils (%) (Auto) 8 % (0-3) H Basophils (%) (Auto) 1 % (0-3) Neutrophils # (Auto) 3.9 x10^3/uL (1.8-7.7) Lymphocytes # (Auto) 2.9 x10^3/uL (1.0-4.8) Monocytes # (Auto) 0.5 x10^3/uL (0.0-1.1) Eosinophils # (Auto) 0.6 x10^3/uL (0.0-0.7) Basophils # (Auto) 0.1 x10^3/uL (0.0-0.2) Prothrombin Time 12.5 SEC (11.7-14.0) Prothrombin Time INR 1.0 (0.8-1.1) PTT 26 SEC (24-38) Sodium Level 138 mmol/L (136-145) Potassium Level 3.6 mmol/L (3.5-5.1) Chloride Level 103 mmol/L (98-107) Carbon Dioxide Level 25 mmol/L (21-32) Anion Gap 10 (6-14) Blood Urea Nitrogen 13 mg/dL (7-20) Creatinine 1.0 mg/dL (0.6-1.0) Estimated GFR (Cockcroft-Gault) 68.9 BUN/Creatinine Ratio 13 (6-20) Glucose Level 106 mg/dL (70-99) H Calcium Level 9.3 mg/dL (8.5-10.1) Magnesium Level 2.2 mg/dL (1.8-2.4) Total Bilirubin 0.2 mg/dL (0.2-1.0) Aspartate Amino Transferase (AST) 13 U/L (15-37) L Alanine Aminotransferase (ALT) 12 U/L (14-59) L Alkaline Phosphatase 88 U/L (46-116) Troponin I Quantitative < 0.017 ng/mL (0.000-0.055) Total Protein 7.5 g/dL (6.4-8.2) Albumin 3.1 g/dL (3.4-5.0) L Albumin/Globulin Ratio 0.7 (1.0-1.7) L Lipase 200 U/L (73-393) Laboratory Tests 05/21/19 15:42 Laboratory Tests 05/21/19 15:42 EKG EKG 1534- sinus bradycardia, rate of 45, left atrial abnormality, no STEMI, read by Dr. Rodriguez[] Radiology/Procedures Radiology/Procedures PROCEDURE: CT ANGIO CHEST ABD PELVIS CT ANGIO CHEST ABD PELVIS Indication: Abdominal pain through the back. Possible aneurysm. Exposure: One or more of the following individualized dose reduction techniques were utilized for this examination: 1. Automated exposure control 2. Adjustment of the mA and/or kV according to patient size 3. Use of iterative reconstruction technique. Technique: Standard imaging obtained after intravenous contrast administration. MIP reconstructions were obtained. Comparison: None are available. Contrast: Intravenous contrast was given. No oral contrast per request. Findings: Mild irregularity of the ascending aorta is thought to be due to pulsatility artifact. Mild aortic calcification. No definite aortic dissection. No evidence of aortic aneurysm. The proximal great vessel origins are patent. Renal arteries appear grossly patent. Superior mesenteric artery and celiac trunk are patent. The inferior mesenteric artery is patent. No evidence of large central pulmonary embolism. Evaluation of nonarterial structures and viscera is limited due to technique. Lungs appear grossly clear. No evidence of pleural effusion. No significant thoracic lymph node enlargement. No evidence of thyroid mass. Multiple dense calcifications are identified within the liver, could be granulomatous. Spleen is not enlarged. Pancreas grossly unremarkable. No evidence of adrenal mass. Kidneys enhance symmetrically without hydronephrosis. No calcified gallstone. No significant lymph node enlargement. Mild urinary bladder wall thickening likely due to incomplete distention. No definite pneumoperitoneum or ascites. No evidence of small bowel obstruction. Mild retained stool in the colon. No evidence of acute colitis. The appendix appears normal. Vertebral body height and alignment are maintained. No aggressive bone destruction. IMPRESSION: 1. Atherosclerotic aortic disease without evidence of aortic aneurysm. 2. No definite aortic dissection. Heterogeneity of the wall of the ascending aorta is likely due to pulsatility artifact. 3. Dense hepatic calcifications, may be granulomatous in nature.[] Course & Med Decision Making Course & Med Decision Making Pertinent Labs and Imaging studies reviewed. (See chart for details) dx: Acute thoracic back pain, abdominal pain, ddx: AAA, ACS, SBO, thoracic aneurysm, UTI, pyelonephritis, aortic dissection CBC was unremarkable, CMP unremarkable, PT INR within normal limits, troponin less than 0.017, UA negative for any signs of infection. EKG sinus bradycardia no ST elevation read by Dr. Rodriguez CT angio chest/abd/pel was negative for any acute findings. Patient was given 50 g of fentanyl, and 4 mg of Zofran in the emergency department she reported some pain relief with medications, 60 mg of IV orphenadrine was ordered prior to discharge. Patient was also given 1 L of normal saline while in the department. Prescription was written for for Norflex, patient was encouraged to follow-up with primary care doctor if symptoms persist, return to the ER symptoms worsen. Patient verbalized an understanding of home care, medications, follow-up, and return to ED instructions and was in agreement with the plan of care. [] Dragon Disclaimer Dragon Disclaimer This electronic medical record was generated, in whole or in part, using a voice recognition dictation system. Departure Departure Impression: Primary Impression: Acute thoracic back pain Additional Impression: Abdominal pain Disposition: HOME, SELF-CARE Condition: STABLE Referrals: MEETA JHAVERI APRN (PCP) Patient Instructions: Back Pain, Adult, [id number] Additional Instructions: Fill the prescription and use as directed. Follow up with your primary care doctor in 1-2 days, return to the ER if symptoms worsen. Scripts Orphenadrine Citrate (ORPHENADRINE CITRATE) 100 Mg Tablet.er 1 TAB PO BID PRN for PAIN for 10 Days, #20 TAB 0 Refills Prov: YANY ORTIZ ONCOLOGY PHYSICIAN ASSISTANT 05/21/19 Problem Qualifiers Primary Impression: Acute thoracic back pain Back pain laterality: midline Qualified Codes: M54.6 - Pain in thoracic spine Additional Impression: Abdominal pain Abdominal location: epigastric Qualified Codes: R10.13 - Epigastric pain YANY ORTIZ ONCOLOGY PHYSICIAN ASSISTANT May 21, 2019 17:14
[2019-05-21] MEDS ORDERED: ORPHENADRINE CITRATE 60 MG/2 ML VIAL. IV ONE (17:15)
[2019-05-21 17:20] VITALS: BP 141/68
--- NOTE | 2019-05-22 06:32 | EKG ---
[facility] [address] [place] [address] Test Date: 2019-05-21 Test Time: 15:34:06 Pat Name: SOILA PITTS Department: Room: Gender: F Crime Scene Evidence Technician: : 1960 Requested By: YANY ORTIZ Order Number: [id number] Reading MD: Measurements Intervals [place] Rate: 45 P: 41 WI: 166 QRS: 62 QRSD: 72 T: 41 QT: 418 QTc: 366 Interpretive Statements SINUS BRADYCARDIA LEFT ATRIAL ABNORMALITY ABNORMAL ECG No previous ECG available for comparison
== END 2019-05-21 17:42 | disposition home or self-care (01) ==
LOC: ER 14:17
DX: M54.6 Pain in thoracic spine (principal); R10.13 Epigastric pain; R11.0 Nausea; K21.9 Gastro-esophageal reflux disease without esophagitis; E05.90 Thyrotoxicosis, unspecified without thyrotoxic crisis or storm; F17.200 Nicotine dependence, unspecified, uncomplicated; Z88.5 Allergy status to narcotic agent
CPT/HCPCS: 36415; 71275; 74174; 80053; 81001; 83690; 83735; 84484; 85025; 85610; 85730; 93005; 96374; 96375; 99285; J2360; J2405; J3010; J7030; Q9967

== ENCOUNTER 2020-06-30 15:50 | Emergency (ER) | payer SELFPAY ==
[~2020-06-30] VITALS: Ht 157.5 cm; Wt 62.0 kg
[~2020-06-30 15:50] MED LIST changes: +ORPH100T PO
[2020-06-30] MEDS ORDERED: ONDANSETRON PF 4 MG/2 ML VIAL. IVP ONE (17:15)
[2020-06-30] MEDS ORDERED: FAMOTIDINE 20 MG/2 ML VIAL IVP ONE (17:15)
[2020-06-30] MEDS ORDERED: IV NORMAL SALINE 1000ML BAG 1,000 ML IV ONE (17:15)
[2020-06-30 17:20] LABS: BILIRUBIN,URINE SMALL (NEG); CLARITY,URINE TURBID; COLOR,URINE AMBER; NITRITE,URINE NEGATIVE (NEG); PROTEIN,URINE 100 mg/dL (NEG-TRACE); UROBILINOGEN,URINE 0.2 mg/dL (0.2 mg/dL)
[2020-06-30 17:24] LABS: BASO % 0 % (0-3); EOS % 0 % (0-3); HEMATOCRIT 44.8 % (36.0-47.0); HEMOGLOBIN 14.8 g/dL (12.0-15.5); LYMPH # 1.4 x10^3/uL (1.0-4.8); LYMPH % 15 % (24-48); MEAN CORPUSCULAR HEMOGLOBIN 28 pg (25-35); MEAN CORPUSCULAR HGB CONC 33 g/dL (31-37); MEAN CORPUSCULAR VOLUME 85 fL (79-100); MONO # 0.3 x10^3/uL (0.0-1.1); MONO % 3 % (0-9); NEUT # 7.9 x10^3/uL (1.8-7.7); NEUT % 83 % (31-73); PLATELET COUNT 279 x10^3/uL (140-400); RED BLOOD COUNT 5.25 x10^6/uL (3.50-5.40); RED CELL DISTRIBUTION WIDTH 13.8 % (11.5-14.5); WHITE BLOOD COUNT 9.6 x10^3/uL (4.0-11.0)
[2020-06-30 17:25] LABS: BACTERIA,URINE 0 /HPF (0-FEW); WBC,URINE RARE /HPF (0-4)
[2020-06-30 17:26] LABS: AMORPHOUS SEDIMENT,UR PRESENT /HPF; BARBITURATES NEG (NEG); BENZODIAZEPINES NEG (NEG); CANNABINOIDS POS (NEG); COCAINE NEG (NEG); METHADONE NEG (NEG); OPIATES NEG (NEG); PHENCYCLIDINE NEG (NEG); SQUAMOUS EPITHELIAL CELL,UR MOD /LPF
[2020-06-30 17:29] LABS: AMPHETAMINE/METHAMPHETAMINE NEG (NEG)
[2020-06-30 17:52] LABS: ALBUMIN 3.7 g/dL (3.4-5.0); ALBUMIN/GLOBULIN RATIO 0.8 (1.0-1.7); CALCIUM 9.6 mg/dL (8.5-10.1); CREATININE 1.4 mg/dL (0.6-1.0); GFR 46.6; MAGNESIUM 1.8 mg/dL (1.8-2.4); POTASSIUM 3.9 mmol/L (3.5-5.1); TOTAL BILIRUBIN 0.5 mg/dL (0.2-1.0); TOTAL PROTEIN 8.6 g/dL (6.4-8.2)
[2020-06-30 17:58] VITALS: BP 170/76
--- NOTE | 2020-06-30 18:45 | RAD ---
PROCEDURE: ABDOMEN SUPINE UPRIGHT STUDY DATE: 06/30/2020 CLINICAL INDICATION / HISTORY: Reason: abd pain / Spl. Instructions: / History: . TECHNIQUE: Supine and upright AP images of the abdomen was obtained. COMPARISON: 03/06/2018 FINDINGS: The lung bases are clear. A nonspecific bowel gas pattern is present. There is relatively little bowel gas present. No organomegaly or pathologic calcifications are identified. No acute osseous abnormality. An i-phone partly obscures the left flank on the supine view. IMPRESSION: Nonspecific bowel gas pattern. No findings of bowel perforation.. Electronically signed by: Martín Cortés MD (06/30/2020 6:43 PM) [facility] [place]
[2020-06-30] MEDS ORDERED: DICY20TA3 PO (19:28)
[2020-06-30] MEDS ORDERED: ONDA4TAB7 PO (19:28)
--- NOTE | 2020-06-30 19:28 | PHYS DOC ---
Past Medical History Past Medical History: GERD, Hyperthyroid, Sciatica Additional Past Medical Histor: sciatica Past Surgical History: Other Additional Past Surgical Histo: d&c,R breast biopsy,r knee fracture repair w/hardware Smoking Status: Current Every Day Smoker Alcohol Use: None Drug Use: None General Adult EDM: Chief Complaint: ABDOMINAL PAIN HPI: HPI: Patient is a 59 year old female who presents to the ED today complaining of 10 out of 10 generalized abdominal pain that began on Sunday after taking pain medicine from the daughter, she does not remember the name of the pain medicine. Patient states she also felt constipated. Patient states she also had hemorrhoids. Patient denies any fever. She reports occasional nausea and vomit ing. Denies any concerns for COVID19. Review of Systems: Review of Systems: Constitutional: Denies fever or chills. [] Eyes: Denies change in visual acuity. [] HENT: Denies nasal congestion or sore throat. [] Respiratory: Denies cough or shortness of breath. [] Cardiovascular: Denies chest pain or edema. [] GI: Reports abdominal pain, nausea, vomiting, constipation, denies diarrhea : Denies dysuria. [] Musculoskeletal: Denies back pain or joint pain. [] Integument: Denies rash. [] Neurologic: Denies headache, focal weakness or sensory changes. [] Endocrine: Denies polyuria or polydipsia. [] Lymphatic: Denies swollen glands. [] Psychiatric: Denies depression or anxiety. [] Heart Score: Risk Factors: Risk Factors: DM, Current or recent (<one month) smoker, HTN, HLP, family history of CAD, obesity. Risk Scores: Score 0 - 3: 2.5% MACE over next 6 weeks - Discharge Home Score 4 - 6: 20.3% MACE over next 6 weeks - Admit for Clinical Observation Score 7 - 10: 72.7% MACE over next 6 weeks - Early Invasive Strategies Current Medications: Current Medications Medications (Trade) Dose Ordered Sig/Yoav Start Time Stop Time Status Last Admin Dose Admin Famotidine (Pepcid Vial) 20 mg 1X ONCE 06/30/20 17:15 06/30/20 17:16 DC 06/30/20 18:02 20 MG Ondansetron HCl (Zofran) 4 mg 1X ONCE 06/30/20 17:15 06/30/20 17:16 DC 06/30/20 18:02 4 MG Sodium Chloride 1,000 ml @ 1,000 mls/hr 1X ONCE 06/30/20 17:15 06/30/20 18:14 DC 06/30/20 18:02 1,000 MLS/HR Allergies: Allergies: Allergies Coded Allergies Type Severity Reaction Last Updated Verified hydrocodone Allergy Mild NAUSEA 03/07/18 Yes Physical Exam: PE: Constitutional: Well developed, well nourished, no acute distress, non-toxic appearance. [] HENT: Normocephalic, atraumatic, bilateral external ears normal, oropharynx moist, no oral exudates, nose normal. [] Eyes: PERRLA, EOMI, conjunctiva normal, no discharge. [] Neck: Normal range of motion, no tenderness, supple, no stridor. [] Cardiovascular:Heart rate regular rhythm, no murmur [] Lungs & Thorax: Bilateral breath sounds clear to auscultation [] Abdomen: Bowel sounds normal, soft, generalized abdominal tenderness, no point tenderness to the right upper quadrant or right lower quadrant, negative Mckeon sign, negative psoas sign, negative obturator sign, no masses, no pulsatile masses. [] Skin: Warm, dry, no erythema, no rash. [] Back: No tenderness, no CVA tenderness. [] Extremities: No tenderness, no cyanosis, no clubbing, ROM intact, no edema. [] Neurologic: Alert and oriented X 3, normal motor function, normal sensory function, no focal deficits noted. [] Psychologic: Affect normal, judgement normal, mood normal. [] Current Patient Data: Labs: Laboratory Tests Test 06/30/20 16:55 06/30/20 17:10 Urine Collection Type Unknown Urine Color [place] Urine Clarity Turbid Urine pH 5.0 (<5.0-8.0) Urine Specific [place] >=1.030 (1.000-1.030) Urine Protein 100 mg/dL (NEG-TRACE) Urine Glucose (UA) Negative mg/dL (NEG) Urine Ketones (Stick) 15 mg/dL (NEG) Urine Blood Large (NEG) Urine Nitrite Negative (NEG) Urine Bilirubin Small (NEG) Urine Urobilinogen Dipstick 0.2 mg/dL (0.2 mg/dL) Urine Leukocyte Esterase Negative (NEG) Urine RBC 3-5 /HPF (0-2) Urine WBC Rare /HPF (0-4) Urine Squamous Epithelial Cells Mod /LPF Urine Amorphous Sediment Present /HPF Urine Bacteria 0 /HPF (0-FEW) Urine Mucus Slight /LPF Urine Opiates Screen Neg (NEG) Urine Methadone Screen Neg (NEG) Urine Barbiturates Neg (NEG) Urine Phencyclidine Screen Neg (NEG) Urine Amphetamine/Methamphetamine Neg (NEG) Urine Benzodiazepines Screen Neg (NEG) Urine Cocaine Screen Neg (NEG) Urine Cannabinoids Screen Pos (NEG) Urine Ethyl Alcohol Neg (NEG) White Blood Count 9.6 x10^3/uL (4.0-11.0) Red Blood Count 5.25 x10^6/uL (3.50-5.40) Hemoglobin 14.8 g/dL (12.0-15.5) Hematocrit 44.8 % (36.0-47.0) Mean Corpuscular Volume 85 fL (79-100) Mean Corpuscular Hemoglobin 28 pg (25-35) Mean Corpuscular Hemoglobin Concent 33 g/dL (31-37) Red Cell Distribution Width 13.8 % (11.5-14.5) Platelet Count 279 x10^3/uL (140-400) Neutrophils (%) (Auto) 83 % (31-73) H Lymphocytes (%) (Auto) 15 % (24-48) L Monocytes (%) (Auto) 3 % (0-9) Eosinophils (%) (Auto) 0 % (0-3) Basophils (%) (Auto) 0 % (0-3) Neutrophils # (Auto) 7.9 x10^3/uL (1.8-7.7) H Lymphocytes # (Auto) 1.4 x10^3/uL (1.0-4.8) Monocytes # (Auto) 0.3 x10^3/uL (0.0-1.1) Eosinophils # (Auto) 0.0 x10^3/uL (0.0-0.7) Basophils # (Auto) 0.0 x10^3/uL (0.0-0.2) Sodium Level 140 mmol/L (136-145) Potassium Level 3.9 mmol/L (3.5-5.1) Chloride Level 100 mmol/L (98-107) Carbon Dioxide Level 23 mmol/L (21-32) Anion Gap 17 (6-14) H Blood Urea Nitrogen 19 mg/dL (7-20) Creatinine 1.4 mg/dL (0.6-1.0) H Estimated GFR (Cockcroft-Gault) 46.6 BUN/Creatinine Ratio 14 (6-20) Glucose Level 148 mg/dL (70-99) H Calcium Level 9.6 mg/dL (8.5-10.1) Magnesium Level 1.8 mg/dL (1.8-2.4) Total Bilirubin 0.5 mg/dL (0.2-1.0) Aspartate Amino Transferase (AST) 18 U/L (15-37) Alanine Aminotransferase (ALT) 15 U/L (14-59) Alkaline Phosphatase 95 U/L (46-116) Total Protein 8.6 g/dL (6.4-8.2) H Albumin 3.7 g/dL (3.4-5.0) Albumin/Globulin Ratio 0.8 (1.0-1.7) L Lipase 61 U/L (73-393) L Ethyl Alcohol Level < 10 mg/dL (0-10) Laboratory Tests 06/30/20 17:10 Laboratory Tests 06/30/20 17:10 Vital Signs: Vital Signs Date Time Temp Pulse Resp B/P (MAP) Pulse Ox O2 Delivery O2 Flow Rate FiO2 06/30/20 17:13 97.4 58 16 132/60 (84) 99 Room Air 97.4 EKG: EKG: [] Radiology/Procedures: Radiology/Procedures: []PROCEDURE: ABDOMEN SUPINE & UPRIGHT PROCEDURE: ABDOMEN SUPINE UPRIGHT STUDY DATE: 06/30/2020 CLINICAL INDICATION / HISTORY: Reason: abd pain / Spl. Instructions: / History: . TECHNIQUE: Supine and upright AP images of the abdomen was obtained. COMPARISON: 03/06/2018 FINDINGS: The lung bases are clear. A nonspecific bowel gas pattern is present. There is relatively little bowel gas present. No organomegaly or pathologic calcifications are identified. No acute osseous abnormality. An i-phone partly obscures the left flank on the supine view. IMPRESSION: Nonspecific bowel gas pattern. No findings of bowel perforation.. Electronically signed by: Nirali Cortés MD (06/30/2020 6:43 PM) [facility] [place] DICTATED and SIGNED BY: NIRALI CORTÉS MD DATE: 06/30/20 184 Course & Med Decision Making: Course & Med Decision Making Pertinent Labs and Imaging studies reviewed. (See chart for details) This is a 59-year-old female patient presenting to the ED today complaining of generalized abdominal pain and constipation after taking pain pills from the daughter. Abdomen x-ray supine and upright are negative for any acute findings, labs are negative for any acute findings. Patient was given IV fluids in the ED. We talked about constipation management and the need to avoid pain pills. Discharge to home. Follow-up with PCP in 1 to 2 weeks. We also talked about other ways of managing constipation including diet high in fiber. Dragon Disclaimer: Dragon Disclaimer: This electronic medical record was generated, in whole or in part, using a voice recognition dictation system. Departure Departure Impression: Primary Impression: Abdominal pain Qualified Codes: R10.84 - Generalized abdominal pain Additional Impressions: Constipation Qualified Codes: K59.00 - Constipation, unspecified Nausea & vomiting Qualified Codes: R11.2 - Nausea with vomiting, unspecified Disposition: 01 HOME, SELF-CARE Condition: STABLE Referrals: NO PCP (PCP) CHRISTIANA BOWENS MD follow up in 2 weeks Patient Instructions: Abdominal Pain (Nonspecific), Constipation, Adult Additional Instructions: You were evaluated in the emergency room for abdominal pain and constipation. Increase your dietary fiber intake, increase your water intake, avoid taking pain pills. If you have some pain take Tylenol. Take MiraLAX every day to prevent constipation. Take a stool softener as well. Take magnesium citrate if you are constipated. Scripts Dicyclomine Hcl (DICYCLOMINE HCL) 20 Mg Tablet 1 TAB PO TID, #12 TAB 1 Refill Prov: ALFREDO GUTIÉRREZ APRN 06/30/20 Ondansetron Hcl (ZOFRAN) 4 Mg Tablet 1 TAB PO Q6HRS, #20 TAB Prov: ALFREDO GUTIÉRREZ APRN 06/30/20 Justicifation of Admission Dx: Justifications for Admission: Justification of Admission Dx: N/A ALFREDO GUTIÉRREZ APRN Jun 30, 2020 19:28
[2020-06-30] MEDS ORDERED: MAGNESIUM CITRATE 296 ML SOLUTION. PO ONE (20:00)
== END 2020-06-30 19:53 | disposition home or self-care (01) ==
LOC: ER 15:50
DX: K59.00 Constipation, unspecified (principal); R11.2 Nausea with vomiting, unspecified; K21.9 Gastro-esophageal reflux disease without esophagitis; F17.200 Nicotine dependence, unspecified, uncomplicated; Z88.5 Allergy status to narcotic agent
CPT/HCPCS: 36415; 74021; 80053; 80307; 81001; 83690; 83735; 85025; 96361; 96374; 96375; 99284; G0480; J2405; J3490; J7030

== ENCOUNTER 2020-12-23 07:27 | Emergency (ER) | payer SELFPAY ==
[~2020-12-23] VITALS: Ht 157.5 cm; Wt 61.4 kg
[~2020-12-23 07:27] MED LIST changes: +DICY20TA3 PO; +ONDA4TAB7 PO
--- NOTE | 2020-12-23 07:40 | PHYS DOC ---
Past Medical History Past Medical History: GERD, Hyperthyroid, Sciatica Additional Past Medical Histor: sciatica Past Surgical History: Other Additional Past Surgical Histo: d&c,R breast biopsy,r knee fracture repair w/hardware Smoking Status: Current Every Day Smoker Alcohol Use: None Drug Use: None General Adult EDM: Chief Complaint: NAUSEA/VOMITING/DIARRHA HPI: HPI: 60-year-old female with no reported significant past medical history, no home medications, who presents for evaluation of 2 days of dull and colicky lower abdominal pain, associated with multiple episodes of nausea and nonbloody/nonbilious emesis. Also reports some constipation, only able to have small bowel movements intermittently. No prior abdominal surgeries. No aggravating or alleviating factors. Review of Systems: Review of Systems: Gen: No fever, chills. Eyes: No blurred vision, diplopia. ENT: No nasal congestion, sore throat. CV: No CP, palpitations. Resp. No SOB, cough. GI: Reports abd pain, N/V. : No dysuria, hematuria. Neuro: No MANNING, dizziness, weakness. MSK: No myalgia, arthralgia. Skin: No acute rash or lesion. Heart Score: Risk Factors: Risk Factors: DM, Current or recent (<one month) smoker, HTN, HLP, family history of CAD, obesity. Risk Scores: Score 0 - 3: 2.5% MACE over next 6 weeks - Discharge Home Score 4 - 6: 20.3% MACE over next 6 weeks - Admit for Clinical Observation Score 7 - 10: 72.7% MACE over next 6 weeks - Early Invasive Strategies Allergies: Allergies: Allergies Coded Allergies Type Severity Reaction Last Updated Verified hydrocodone Allergy Mild NAUSEA 03/07/18 Yes Physical Exam: PE: Gen: Uncomfortable appearing. Head: NC/AT. Eyes: No scleral icterus. No conjunctival injection. ENT: MMM. Posterior OP clear. Neck: Supple. CV: RRR. Peripheral pulses intact. Resp: CTAB. Abd: Soft. Nondistended. Mild mid abdominal tenderness without rebound, guarding, rigidity. No flank percussion tenderness. MSK: No peripheral cyanosis. No edema. Neuro: Awake and alert. Skin. Warm. Dry. Psych: Appropriate mood & affect. Current Patient Data: Labs: Laboratory Tests Test 12/23/20 07:46 12/23/20 08:07 Urine Collection Type Void Urine Color Merly Urine Clarity Clear Urine pH 5.0 (<5.0-8.0) Urine Specific [place] >=1.030 (1.000-1.030) Urine Protein 30 mg/dL (NEG-TRACE) Urine Glucose (UA) Negative mg/dL (NEG) Urine Ketones (Stick) 40 mg/dL (NEG) Urine Blood Large (NEG) Urine Nitrite Negative (NEG) Urine Bilirubin Small (NEG) Urine Urobilinogen Dipstick 1.0 mg/dL (0.2 mg/dL) Urine Leukocyte Esterase Negative (NEG) Urine RBC 3-5 /HPF (0-2) Urine WBC 1-4 /HPF (0-4) Urine Squamous Epithelial Cells Many /LPF Urine Amorphous Sediment Present /HPF Urine Bacteria Few /HPF (0-FEW) Urine Mucus Marked /LPF Urine Opiates Screen Neg (NEG) Urine Methadone Screen Neg (NEG) Urine Barbiturates Neg (NEG) Urine Phencyclidine Screen Neg (NEG) Urine Amphetamine/Methamphetamine Neg (NEG) Urine Benzodiazepines Screen Neg (NEG) Urine Cocaine Screen Neg (NEG) Urine Cannabinoids Screen Pos (NEG) Urine Ethyl Alcohol Neg (NEG) White Blood Count 8.6 x10^3/uL (4.0-11.0) Red Blood Count 5.37 x10^6/uL (3.50-5.40) Hemoglobin 14.9 g/dL (12.0-15.5) Hematocrit 45.5 % (36.0-47.0) Mean Corpuscular Volume 85 fL (79-100) Mean Corpuscular Hemoglobin 28 pg (25-35) Mean Corpuscular Hemoglobin Concent 33 g/dL (31-37) Red Cell Distribution Width 13.5 % (11.5-14.5) Platelet Count 315 x10^3/uL (140-400) Neutrophils (%) (Auto) 70 % (31-73) Lymphocytes (%) (Auto) 25 % (24-48) Monocytes (%) (Auto) 4 % (0-9) Eosinophils (%) (Auto) 1 % (0-3) Basophils (%) (Auto) 1 % (0-3) Neutrophils # (Auto) 6.0 x10^3/uL (1.8-7.7) Lymphocytes # (Auto) 2.1 x10^3/uL (1.0-4.8) Monocytes # (Auto) 0.4 x10^3/uL (0.0-1.1) Eosinophils # (Auto) 0.1 x10^3/uL (0.0-0.7) Basophils # (Auto) 0.1 x10^3/uL (0.0-0.2) Sodium Level 139 mmol/L (136-145) Chloride Level 99 mmol/L (98-107) Carbon Dioxide Level 22 mmol/L (21-32) Anion Gap 18 (6-14) Blood Urea Nitrogen 16 mg/dL (7-20) Estimated GFR (Cockcroft-Gault) 61.3 BUN/Creatinine Ratio 15 (6-20) Glucose Level 133 mg/dL (70-99) Calcium Level 9.7 mg/dL (8.5-10.1) Total Bilirubin 0.6 mg/dL (0.2-1.0) Aspartate Amino Transf (AST/SGOT) 17 U/L (15-37) Alkaline Phosphatase 101 U/L (46-116) Total Protein 7.6 g/dL (6.4-8.2) Albumin 3.8 g/dL (3.4-5.0) Albumin/Globulin Ratio 1.0 (1.0-1.7) Lipase 82 U/L (73-393) EKG: EKG: [] Radiology/Procedures: Radiology/Procedures: PROCEDURE: CT ABD PELV W/ IV CONTRST ONLY PQRS Compliance Statement: One or more of the following individualized dose reduction techniques were utilized for this examination: 1. Automated exposure control 2. Adjustment of the mA and/or kV according to patient size 3. Use of iterative reconstruction technique Exam performed: CT scan of the abdomen and pelvis with contrast Clinical Indication:Lower abdominal pain Date of Service:12/23/2020 comparison: CT abdomen and pelvis from 05/21/2019 Technique: Contiguous helical acquisitions are obtained from the lung bases to the pelvis during intravenous administration of [75 cc of Omnipaque 300 .Oral contrast was not given Sagittal and coronal reformatted images were obtained and reviewed. CT abdomen and pelvis findings: The lung bases appear essentially clear. Visualized heart is mostly normal. The liver is normal in size and attenuation. Multiple calcified foci are seen in the right hepatic lobe, similar to prior study likely remote from the rectus nodules. The spleen and pancreas appears unremarkable. Gallbladder is distended Both adrenal glands and bilateral kidneys appear normal with symmetric excretion of contrast via both kidneys. The small bowel loops appear nondilated and unremarkable. Visualized appendix is normal, no inflammatory changes or fluid collections seen in the right lower quadrant. There is diffuse wall thickening of the ascending and proximal transverse colon with mild inflammatory changes. No abnormal fluid collections are seen. Aorta is normal in caliber demonstrating diffuse atheromatous calcification. There is no retroperitoneal lymphadenopathy or mass lesions. No free fluid. The urinary bladder is partially decompressed, however normal. The uterus is anteverted containing calcifications likely calcified fibroids. No pelvic free fluid identified. Interrogation of bone windows demonstrates no obvious bony abnormality. Sagittal and coronal reformatted images were obtained and reviewed which demonstrate no additional findings. Impression abdomen and pelvis : 1. Diffuse wall thickening of the ascending and transverse colon with mild inflammatory changes. Mild diffuse colitis is suspected. 2. Calcified nodules in the liver perhaps related to remote atelectasis infection. Electronically signed by: Kourtney Mccullough MD (12/23/2020 9:41 AM) [id number] Course & Med Decision Making: Course & Med Decision Making Pertinent Labs and Imaging studies reviewed. (See chart for details) In summary, 60-year-old female presenting with nausea and vomiting and mid abdominal pain. Lab work otherwise unremarkable. Urine toxicology positive for THC. CT abdomen/pelvis does reveal findings of mild colitis. Possible component of cyclic vomiting as well. Stable for discharge with outpatient follow-up. Return precautions given. Dragon Disclaimer: Cynthia Disclaimer: This electronic medical record was generated, in whole or in part, using a voice recognition dictation system. Departure Departure Impression: Primary Impression: Colitis Additional Impression: Cyclical vomiting Disposition: 01 HOME SELF CARE/HOMELESS Condition: STABLE Referrals: NO PCP (PCP) Patient Instructions: Colitis Scripts Ondansetron (ONDANSETRON ODT) 4 Mg Tab.rapdis 1 TAB PO PRN Q6-8HRS, #16 TAB Prov: LE,ROLAND H DO 12/23/20 Metronidazole (FLAGYL) 500 Mg Tablet 1 TAB PO BID, #20 TAB Prov: LE,ROLAND H DO 12/23/20 Amoxicillin/Potassium Clav (AUGMENTIN 875-125 TABLET) 1 Each Tablet 1 TAB PO Q12HR, #20 TAB Prov: LE,ROLAND H DO 2/11/21 ROLAND SILVER DO Dec 23, 2020 07:40
[2020-12-23] MEDS ORDERED: ONDANSETRON PF 4 MG/2 ML VIAL. IVP ONE (07:45)
[2020-12-23] MEDS ORDERED: MORPHINE SULFATE 4 MG/ML VIAL. IV ONE (07:45)
[2020-12-23] MEDS ORDERED: IV NORMAL SALINE 1000ML BAG 1,000 ML IV SCH (07:45)
[2020-12-23] MEDS ORDERED: HALOPERIDOL LACTATE 5 MG/ML VIAL. IVP ONE (08:15)
[2020-12-23 08:21] LABS: BASO # 0.1 x10^3/uL (0.0-0.2); BASO % 1 % (0-3); EOS # 0.1 x10^3/uL (0.0-0.7); EOS % 1 % (0-3); HEMATOCRIT 45.5 % (36.0-47.0); HEMOGLOBIN 14.9 g/dL (12.0-15.5); LYMPH # 2.1 x10^3/uL (1.0-4.8); LYMPH % 25 % (24-48); MEAN CORPUSCULAR HEMOGLOBIN 28 pg (25-35); MEAN CORPUSCULAR HGB CONC 33 g/dL (31-37); MEAN CORPUSCULAR VOLUME 85 fL (79-100); MONO # 0.4 x10^3/uL (0.0-1.1); MONO % 4 % (0-9); NEUT % 70 % (31-73); PLATELET COUNT 315 x10^3/uL (140-400); RED BLOOD COUNT 5.37 x10^6/uL (3.50-5.40); RED CELL DISTRIBUTION WIDTH 13.5 % (11.5-14.5); WHITE BLOOD COUNT 8.6 x10^3/uL (4.0-11.0)
[2020-12-23 08:25] LABS: BILIRUBIN,URINE SMALL (NEG); CLARITY,URINE CLEAR; COLOR,URINE AMBER; NITRITE,URINE NEGATIVE (NEG); PROTEIN,URINE 30 mg/dL (NEG-TRACE)
[2020-12-23 08:32] LABS: CALCIUM 9.7 mg/dL (8.5-10.1); CREATININE 1.1 mg/dL (0.6-1.0); GFR 61.3; POTASSIUM 3.7 mmol/L (3.5-5.1)
[2020-12-23 08:32] LABS: BARBITURATES NEG (NEG); BENZODIAZEPINES NEG (NEG); CANNABINOIDS POS (NEG); COCAINE NEG (NEG); METHADONE NEG (NEG); OPIATES NEG (NEG); PHENCYCLIDINE NEG (NEG)
[2020-12-23 08:33] LABS: AMPHETAMINE/METHAMPHETAMINE NEG (NEG)
[2020-12-23 08:39] LABS: ALBUMIN 3.8 g/dL (3.4-5.0); TOTAL BILIRUBIN 0.6 mg/dL (0.2-1.0); TOTAL PROTEIN 7.6 g/dL (6.4-8.2)
[2020-12-23 08:44] LABS: BACTERIA,URINE FEW /HPF (0-FEW)
[2020-12-23 08:45] LABS: AMORPHOUS SEDIMENT,UR PRESENT /HPF
[2020-12-23] MEDS ORDERED: IOHEXOL 300 MG/ML 100ML VIAL. IV ONE (08:45)
[2020-12-23] MEDS ORDERED: CONTRAST GIVEN. MC PRN (09:00)
--- NOTE | 2020-12-23 09:44 | RAD ---
PQRS Compliance Statement: One or more of the following individualized dose reduction techniques were utilized for this examinat ion: 1. Automated exposure control 2. Adjustment of the mA and/or kV according to patient size 3. Use of iterative reconstruction technique Exam performed: CT scan of the abdomen and pelvis with contrast Clinical Indication:Lower abdominal pain Date of Service:12/23/2020 comparison: CT abdomen and pelvis from 05/21/2019 Technique: Contiguous helical acquisitions are obtained from the lung bases to the pelvis during int ravenous administration of [75 cc of Omnipaque 300 .Oral contrast was not given Sagittal and coronal reformatted images were obtained and reviewed. CT abdomen and pelvis findings: The lung bases appear essentially clear. Visualized heart is mostly normal. The liver is normal in size and attenuation. Multiple calcified foci are seen in the right hepatic lo be, similar to prior study likely remote from the rectus nodules. The spleen and pancreas appears un remarkable. Gallbladder is distended Both adrenal glands and bilateral kidneys appear normal with s ymmetric excretion of contrast via both kidneys. The small bowel loops appear nondilated and unremar kable. Visualized appendix is normal, no inflammatory changes or fluid collections seen in the right lower quadrant. There is diffuse wall thickening of the ascending and proximal transverse colon with mild inflammatory changes. No abnormal fluid collections are seen. Aorta is normal in caliber demonst rating diffuse atheromatous calcification. There is no retroperitoneal lymphadenopathy or mass lesion s. No free fluid. The urinary bladder is partially decompressed, however normal. The uterus is ante verted containing calcifications likely calcified fibroids. No pelvic free fluid identified. Interrog ation of bone windows demonstrates no obvious bony abnormality. Sagittal and coronal reformatted images were obtained and reviewed which demonstrate no additional f indings. Impression abdomen and pelvis : 1. Diffuse wall thickening of the ascending and transverse colon with mild inflammatory changes. Mil d diffuse colitis is suspected. 2. Calcified nodules in the liver perhaps related to remote atelectasis infection. Electronically signed by: Kourtney Mccullough MD (12/23/2020 9:41 AM) [id number]
[2020-12-23] MEDS ORDERED: ONDA4TAB12 PO (10:01)
[2020-12-23] MEDS ORDERED: METR500T PO (10:01)
[2020-12-23] MEDS ORDERED: AMOX1TAB61 PO (10:01)
[2020-12-23 10:15] VITALS: BP 131/74
== END 2020-12-23 10:19 | disposition home or self-care (01) ==
LOC: ER 07:27
DX: K52.9 Noninfective gastroenteritis and colitis, unspecified (principal); K21.9 Gastro-esophageal reflux disease without esophagitis; F17.200 Nicotine dependence, unspecified, uncomplicated; Z88.5 Allergy status to narcotic agent
CPT/HCPCS: 36415; 74177; 80053; 80307; 81001; 83690; 83735; 85025; 96361; 96374; 96375; 99285; J1630; J2270; J2405; J7030; Q9967